=== PATIENT | female | born 2000 | race African-American/Black ===

== ENCOUNTER 2021-06-09 03:42 | Inpatient (IN) ==
[2021-06-09] MEDS ORDERED: LORazepam 1 MG TAB SL STA (04:16)
--- NOTE | 2021-06-09 04:18 | Emergency Department Note ---
Impression & Plan Suicidal ideation, Alcohol intoxication The case was signed out to Dr. Hood at change of shift awaiting evaluation by the ED psychiatric human services case manager ED Provider Note NAME: HAILEE HUERTA AGE: 20 SEX: F ARRIVES VIA: Ambulance INFORMANT: Patient ED PROVIDER(S): Kim Min DO CHIEF COMPLAINT: Anxiety; suicidal thoughts PLAN: Disposition: Case was signed out to Dr. Hood at change of shift awaiting evaluation by the ED psychiatric human services case manager Condition: Stable MEDICAL DECISION MAKING: This is a 20-year-old female patient with a history of anxiety who is now having suicidal thoughts. The patient did drink some alcohol between 9 PM and 11 PM this evening and began to have more significant anxiety. She then describes having scary thoughts and called her mother. Her mother directed her here to the emergency department for help. Once the patient is more awake, she will be evaluated by the ED psychiatric human services case manager. I have concerns that the patient was having increasing suicidal thoughts and the human services case manager will need to discuss what her specific plans were and what her intent was. Triage Nursing notes reviewed and agree with them. Vital Signs: reviewed and unremarkable Differential diagnosis: Mood disorder, thought disorder, suicidal ideation ER treatment provided: Sublingual Ativan Diagnostics interpreted by me: Laboratory studies: See below HPI: 20/ arrives for evaluation of anxiety. Patient describes having i ncreasing anxiety because of an interaction with a close friend of hers. She states that the close friend shared some very personal information about her with another friend and this was very upsetting to the patient. The patient was drinking some alcohol tonight and became even more anxious and began to have suicidal thoughts. She called her mother and her mom directed her here to the emergency department for help. ROS: See above HPI for pertinent positives & negatives. A total of 10 systems reviewed and were otherwise negative. PAST MEDICAL HISTORY:Anxiety; hyperthyroidism PAST SURGICAL HISTORY:See Below FAMILY HISTORY:See Below SOCIAL HISTORY:Patient is a senior at [employer]. She occasionally drinks alcohol. She denies any other drug use HOME MEDICATIONS:Toprol; methimazole ALLERGIES:None VITALS:See Below PHYSICAL EXAMINATION: HEENT: Head - normocephalic and atraumatic. Pupils are equal, round, and reactive to light. Extraocular eye muscles are intact, and sclera are anicteric. Nose - moist nasal mucosa without discharge. Mouth - moist buccal mucosa. Oropharynx is nonerythematous and there is no tonsillar exudate or e erasmo noted. Neck: Supple; no thyromegaly or cervical lymphadenopathy Heart: Regular rate and rhythm. There is a normal S1 and S2 with no murmurs, clicks, or gallops appreciated. Lungs: Clear to auscultation bilaterally with no wheezes, rales, or rhonchi. Abdomen: Soft, completely nontender, nondistended, with good bowel sounds. There are no palpable pulsatile masses or hepatosplenomegaly. There is no guarding, rigidity, or rebound noted. Extremities: No evidence of cyanosis, clubbing, or edema. There are easily palpable peripheral pulses. Skin: warm and dry with good turgor and no rashes. Psych: The patient is tearful on exam and is quite anxious to the point that she is tremulous. She does describe suicidal thoughts but would not divulge her plan ED COURSE: Times/Reassessments: 0405 the patient was evaluated in room A5, a complete history and physical was performed. Laboratory studies were drawn as above. Patient was given 0.5 mg of sublingual Ativan. Patient's alcohol level came back minimally elevated. However she was quite sleepy on exam. Once the patient is more awake, she will be evaluated by the ED psychiatric human services case manager. Kim Min DO Past Med/Surg History Medical History Hyperthyroidism No pertinent family history Surgical History No pertinent past surgical history Family History Father Hyperthyroidism Grandfather (Paternal) Hyperthyroidism Social History Smoking Status: Never smoker Tobacco Type: E-cigarettes / Vaping Hx Alcohol Use: No Preferred Language: Moroccan Feels Safe at Home: Yes Allergies Allergies Allergy/AdvReac Type Severity Reaction Status Date / Time No Known Drug Allergies Allergy Verified 02/03/20 12:25 Home Meds Home Medications Medication Instructions Recorded Confirmed levonorgestrel (Kyleena) INTRAUTERINE 12/09/19 02/03/20 Previous Rx's Medication Instructions Recorded methimazole 5 mg tablet 10 mg PO DAILY #30 tab 02/03/20 Results & Data (ED) Vital Signs Vital Signs - 24 hr 06/09/21 03:50 Temperature 36.7 C Temperature Source Oral Pulse Rate 80 Respiratory Rate 24 Blood Pressure 120/79 Blood Pressure Mean 92 Blood Pressure Position Sitting Pulse Oximetry 97 Oxygen Delivery Method Room Air Sepsis Recent Fever Within 48 Hours No Sepsis New/Unexplained Change in Mental Status N/A Sepsis Action Taken by Nursing No Action Required Laboratory Data Result diagrams: 06/09/21 04:46 06/09/21 04:46 Lab Results 06/09/21 06/09/21 06/09/21 Range/Units 04:46 04:46 04:46 WBC 5.09 (4.8-10.8) K/uL RBC 4.44 (4.2-5.4) M/uL Hgb 13.6 (12.0-16.0) g/dL Hct 40.1 (37-47) % MCV 90.3 (80-100) fL MCH 30.6 (25-34) pg MCHC 33.9 (32-36) g/dL RDW Std Deviation 40.1 (36.4-46.3) fL RDW Coeff of Nicholas 12.2 (11.5-14.5) % Plt Count 281 (130-400) K/uL MPV 10.9 H (7.4-10.4) fL Immature Gran % (Auto) 0.2 % Neut % (Auto) 39.1 % Lymph % (Auto) 49.7 % Hitchcock % (Auto) 10.4 % Eos % (Auto) 0.4 % Baso % (Auto) 0.2 % Neut # (Auto) 1.99 (1.4-6.5) K/uL Lymph # (Auto) 2.53 (1.2-3.4) K/uL Hitchcock # (Auto) 0.53 (0.11-0.59) K/uL Eos # (Auto) 0.02 (0-0.5) K/uL Baso # (Auto) 0.01 (0-0.2) K/uL Immature Gran # (Auto) 0.01 (0.00-0.02) K/uL Sodium 139 (136-145) mmol/L Potassium 3.6 (3.5-5.1) mmol/L Chloride 108 H (98-107) mmol/L Carbon Dioxide 24 (21-32) mmol/L Anion Gap 7 (3-11) BUN 10 (6-23) mg/dl Creatinine 0.64 (0.6-1.2) mg/dl Est Cr Clr Drug Dosing 138.8 ml/min Est GFR ( Amer) 147.8 ml/min Est GFR (Non-Af Amer) 127.6 ml/min BUN/Creatinine Ratio 15.6 (10-20) Glucose 93 (70-99(Fasting)) mg/dl Calcium 8.4 L (8.5-10.1) mg/dl Total Bilirubin 0.2 (0.2-1.0) mg/dl AST 19 (13-39) U/L ALT 16 (7-52) U/L Alkaline Phosphatase 45 (34-104) U/L Total Protein 7.3 (6.0-8.3) gm/dl Albumin 4.1 (3.4-5.0) gm/dl Globulin 3.2 (2.5-4.0) gm/dl Albumin/Globulin Ratio 1.3 (0.9-2) TSH 2.530 (0.300-4.500) uIu/ml Urine Color Urine Appearance (Clear) Urine pH (4.5-7.5) Ur Specific Jud (1.000-1.030) Urine Protein (Negative) Urine Glucose (UA) (Negative) Urine Ketones (Negative) Urine Blood (Negative) Urine Nitrite (Negative) Urine Bilirubin (Negative) Urine Urobilinogen (Negative) Ur Leukocyte Esterase (Negative) POC Ur Test (NEG) Salicylates (3.0-30) mg/dl Urine Opiates Screen (Neg) Ur Methadone, Qual (Neg) Acetaminophen (10-30) ug/ml Urine Barbiturates (Neg) Ur Phencyclidine (PCP) (Neg) U Amphetamin/Meth Scrn (Neg) MDMA (Ecstasy) Screen (Neg) U Benzodiazepines Scrn (Neg) Ur Cocaine Metabolite (Neg) U Marijuana (THC) Screen (Neg) Ethyl Alcohol mg/dL (<10.0) mg/dl SARS-CoV-2, RNA, NAAT (NEGATIVE) 06/09/21 06/09/21 06/09/21 Range/Units 04:46 04:46 05:30 WBC (4.8-10.8) K/uL RBC (4.2-5.4) M/uL Hgb (12.0-16.0) g/dL Hct (37-47) % MCV (80-100) fL MCH (25-34) pg MCHC (32-36) g/dL RDW Std Deviation (36.4-46.3) fL RDW Coeff of Nicholas (11.5-14.5) % Plt Count (130-400) K/uL MPV (7.4-10.4) fL Immature Gran % (Auto) % Neut % (Auto) % Lymph % (Auto) % Hitchcock % (Auto) % Eos % (Auto) % Baso % (Auto) % Neut # (Auto) (1.4-6.5) K/uL Lymph # (Auto) (1.2-3.4) K/uL Hitchcock # (Auto) (0.11-0.59) K/uL Eos # (Auto) (0-0.5) K/uL Baso # (Auto) (0-0.2) K/uL Immature Gran # (Auto) (0.00-0.02) K/uL Sodium (136-145) mmol/L Potassium (3.5-5.1) mmol/L Chloride (98-107) mmol/L Carbon Dioxide (21-32) mmol/L Anion Gap (3-11) BUN (6-23) mg/dl Creatinine (0.6-1.2) mg/dl Est Cr Clr Drug Dosing ml/min Est GFR ( Amer) ml/min Est GFR (Non-Af Amer) ml/min BUN/Creatinine Ratio (10-20) Glucose (70-99(Fasting)) mg/dl Calcium (8.5-10.1) mg/dl Total Bilirubin (0.2-1.0) mg/dl AST (13-39) U/L ALT (7-52) U/L Alkaline Phosphatase (34-104) U/L Total Protein (6.0-8.3) gm/dl Albumin (3.4-5.0) gm/dl Globulin (2.5-4.0) gm/dl Albumin/Globulin Ratio (0.9-2) TSH (0.300-4.500) uIu/ml Urine Color Urine Appearance (Clear) Urine pH (4.5-7.5) Ur Specific Jud (1.000-1.030) Urine Protein (Negative) Urine Glucose (UA) (Negative) Urine Ketones (Negative) Urine Blood (Negative) Urine Nitrite (Negative) Urine Bilirubin (Negative) Urine Urobilinogen (Negative) Ur Leukocyte Esterase (Negative) POC Ur Test NEG (NEG) Salicylates < 3.0 L (3.0-30) mg/dl Urine Opiates Screen (Neg) Ur Methadone, Qual (Neg) Acetaminophen < 3 L (10-30) ug/ml Urine Barbiturates (Neg) Ur Phencyclidine (PCP) (Neg) U Amphetamin/Meth Scrn (Neg) MDMA (Ecstasy) Screen (Neg) U Benzodiazepines Scrn (Neg) Ur Cocaine Metabolite (Neg) U Marijuana (THC) Screen (Neg) Ethyl Alcohol mg/dL 134.2 H (<10.0) mg/dl SARS-CoV-2, RNA, NAAT (NEGATIVE) 06/09/21 06/09/21 06/09/21 Range/Units 05:35 05:40 05:40 WBC (4.8-10.8) K/uL RBC (4.2-5.4) M/uL Hgb (12.0-16.0) g/dL Hct (37-47) % MCV (80-100) fL MCH (25-34) pg MCHC (32-36) g/dL RDW Std Deviation (36.4-46.3) fL RDW Coeff of Nicholas (11.5-14.5) % Plt Count (130-400) K/uL MPV (7.4-10.4) fL Immature Gran % (Auto) % Neut % (Auto) % Lymph % (Auto) % Hitchcock % (Auto) % Eos % (Auto) % Baso % (Auto) % Neut # (Auto) (1.4-6.5) K/uL Lymph # (Auto) (1.2-3.4) K/uL Hitchcock # (Auto) (0.11-0.59) K/uL Eos # (Auto) (0-0.5) K/uL Baso # (Auto) (0-0.2) K/uL Immature Gran # (Auto) (0.00-0.02) K/uL Sodium (136-145) mmol/L Potassium (3.5-5.1) mmol/L Chloride (98-107) mmol/L Carbon Dioxide (21-32) mmol/L Anion Gap (3-11) BUN (6-23) mg/dl Creatinine (0.6-1.2) mg/dl Est Cr Clr Drug Dosing ml/min Est GFR ( Amer) ml/min Est GFR (Non-Af Amer) ml/min BUN/Creatinine Ratio (10-20) Glucose (70-99(Fasting)) mg/dl Calcium (8.5-10.1) mg/dl Total Bilirubin (0.2-1.0) mg/dl AST (13-39) U/L ALT (7-52) U/L Alkaline Phosphatase (34-104) U/L Total Protein (6.0-8.3) gm/dl Albumin (3.4-5.0) gm/dl Globulin (2.5-4.0) gm/dl Albumin/Globulin Ratio (0.9-2) TSH (0.300-4.500) uIu/ml Urine Color Yellow Urine Appearance Clear (Clear) Urine pH 5.5 (4.5-7.5) Ur Specific Jud 1.016 (1.000-1.030) Urine Protein Negative (Negative) Urine Glucose (UA) Negative (Negative) Urine Ketones Negative (Negative) Urine Blood Negative (Negative) Urine Nitrite Negative (Negative) Urine Bilirubin Negative (Negative) Urine Urobilinogen Negative (Negative) Ur Leukocyte Esterase Negative (Negative) POC Ur Test (NEG) Salicylates (3.0-30) mg/dl Urine Opiates Screen Neg (Neg) Ur Methadone, Qual Neg (Neg) Acetaminophen (10-30) ug/ml Urine Barbiturates Neg (Neg) Ur Phencyclidine (PCP) Neg (Neg) U Amphetamin/Meth Scrn Neg (Neg) MDMA (Ecstasy) Screen Neg (Neg) U Benzodiazepines Scrn Neg (Neg) Ur Cocaine Metabolite Neg (Neg) U Marijuana (THC) Screen Pos H (Neg) Ethyl Alcohol mg/dL (<10.0) mg/dl SARS-CoV-2, RNA, NAAT NEGATIVE (NEGATIVE) Administered Medications Discontinued Medications Lorazepam (Lorazepam 1 Mg Tab) 0.5 mg SL NOW STA Stop: 06/09/21 04:17 Last Admin: 06/09/21 04:32 Dose: 0.5 mg Documented by: [id number] Discharge Plan Visit Data Chief Complaint: Anxiety Stated Complaint: Anxiety ED Provider: Kim Min Discharge Problem: Suicidal ideation, Alcohol intoxication Forms Stand Alone Forms: [facility], Suicide Prevention Resources Prescriptions Prescriptions: No Action methimazole 5 mg tablet 10 mg PO DAILY Qty: 30 RF: 3 Kyleena 17.5 mcg/24 hrs (5 yrs) 19.5 mg intrauterine device intrauterine RF: 0 Referrals Referrals: Bianca Siegel MD [Primary Care Provider] - Discharge Problem: Alcohol intoxication Qualifiers: Complication of substance-induced condition: with unspecified complication Qualified Code(s): F10.929 - Alcohol use, unspecified with intoxication, unspecified
[2021-06-09 04:55] LABS: Basophils # (auto) 0.01 K/uL (0-0.2); Basophils % (auto) 0.2 %; Eosinophils # (auto) 0.02 K/uL (0-0.5); Eosinophils % (auto) 0.4 %; Hematocrit (blood only) 40.1 % (37-47); Hemoglobin 13.6 g/dL (12.0-16.0); Immature Granulocytes # (auto) 0.01 K/uL (0.00-0.02); Immature Granulocytes % (auto) 0.2 %; Lymphocytes # (auto) 2.53 K/uL (1.2-3.4); Lymphocytes % (auto) 49.7 %; Mean Corpuscular Hemoglobin 30.6 pg (25-34); Mean Corpuscular Hgb Conc 33.9 g/dL (32-36); Mean Corpuscular Volume 90.3 fL (80-100); Mean Platelet Volume 10.9 fL (7.4-10.4); Monocytes # (auto) 0.53 K/uL (0.11-0.59); Monocytes % (auto) 10.4 %; Neutrophils # (auto) 1.99 K/uL (1.4-6.5); Neutrophils % (auto) 39.1 %; Platelet Count 281 K/uL (130-400); RDW Coefficient of Variation 12.2 % (11.5-14.5); RDW Standard Deviation 40.1 fL (36.4-46.3); Red Blood Count 4.44 M/uL (4.2-5.4); White Blood Count 5.09 K/uL (4.8-10.8)
[2021-06-09 05:13] LABS: Albumin Globulin Ratio 1.3 (0.9-2); Albumin Level 4.1 gm/dl (3.4-5.0); BUN Creatinine Ratio 15.6 (10-20); Bilirubin,Total 0.2 mg/dl (0.2-1.0); Calcium 8.4 mg/dl (8.5-10.1); Creatinine Clr Calc Pharmacy 138.8 ml/min; Est GFR (African American) 147.8 ml/min; Est GFR (Non-African American) 127.6 ml/min; Globulin 3.2 gm/dl (2.5-4.0); Potassium 3.6 mmol/L (3.5-5.1); Total Protein 7.3 gm/dl (6.0-8.3)
[2021-06-09 05:28] LABS: Acetaminophen < 3 ug/ml (10-30); Salicylate < 3.0 mg/dl (3.0-30)
[2021-06-09 06:01] LABS: Appearance Urine Clear (Clear); Bilirubin Urine Negative (Negative); Blood Urine Negative (Negative); Color Urine Yellow; Glucose Urine UA Negative (Negative); Ketones Urine Negative (Negative); Leukocyte Esterase Urine Negative (Negative); Nitrite Urine Negative (Negative); Protein Urine Negative (Negative); Specific Gravity Urine 1.016 (1.000-1.030); Urobilinogen Urine Negative (Negative); pH Urine 5.5 (4.5-7.5)
[2021-06-09 06:55] LABS: Amphetamines+Metham, Urine Neg (Neg); Barbiturates, Urine Neg (Neg); Benzodiazepine, Urine Neg (Neg); Cocaine, Urine Neg (Neg); MDMA (Ecstacy), Urine Neg (Neg); Methadone, Urine Neg (Neg); Opiate, Urine Neg (Neg); Phencyclidine, Urine Neg (Neg)
--- NOTE | 2021-06-09 08:15 | Emergency Department Note ---
ED Visit Note Patient was received in signout by Dr. Min. Please see her note for complete HPI and details. She is a 20-year-old female who presents to the ER with suicidal ideations who admits to a plan of suicide but will not elaborate on what it is. She was medically cleared by Dr. Day awaiting evaluation from her psychiatric care managers. Agreeable on a 201. Patient was evaluated by our psychiatric care managers and 3 south and admitted on 201. . : Alcohol intoxication Qualifiers: Complication of substance-induced condition: with unspecified complication Qualified Code(s): F10.929 - Alcohol use, unspecified with intoxication, unspecified
[2021-06-09] MEDS ORDERED: ALUMINUM/MAGNESIUM SUSP 30 ML UDC PO PRN (10:48)
[2021-06-09] MEDS ORDERED: MAGNESIUM HYDROXIDE SUSP 30 ML UDC PO PRN (10:48)
[2021-06-09] MEDS ORDERED: BISMUTH SUBSALICYLATE LIQD 236 ML PO PRN (10:48)
[2021-06-09] MEDS ORDERED: hydrOXYzine HCl 25 MG TAB PO PRN ×2 (10:48)
[2021-06-09] MEDS ORDERED: ACETAMINOPHEN 325 MG TAB PO PRN (10:48)
[2021-06-09] MEDS ORDERED: SODIUM CHLORIDE 0.65% NA SOLN 45 ML (OCEAN) PRN (10:48)
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
[2021-06-09] MEDS ORDERED: SERTRALINE HCL 50 MG TABLET PO ONE ×2 (12:56→22:00)
[2021-06-09] MEDS: METOPROLOL TARTRATE 25 MG TAB PO SCH (14:54)
[2021-06-09] MEDS: NICOTINE 14 MG/24 HR PATCH TD SCH (17:50)
[2021-06-09] MEDS ORDERED: methIMAzole 5 MG TABLET PO SCH (19:00)
[2021-06-10] MEDS: METOPROLOL TARTRATE 25 MG TAB PO SCH (10:15)
[2021-06-10] MEDS: NICOTINE 14 MG/24 HR PATCH TD SCH (10:33)
--- NOTE | 2021-06-10 12:51 | Psychiatric Progress Note ---
Date of Service June 10, 2021 Impression / Recommendations Impression 20 yo female presenting with suicidal ideation in the context of an anxiety attack triggered by an argument with her roommate. She reports a high level of anxiety at baseline which is also likely posttraumatic. She does not meet full criteria for PTSD or bipolar II disorder at this time but these will remain in the differential. 06/10/21: Continued inpatient hospitalization is medically necessary for ongoing monitoring and safety as unable to safety plan, overwhelmed by past, ongoing negative thought disortions and poor sleep (1) Major depression: (2) Hyperthyroidism: 06/10/21: thyroid enlarged on exam, symmetric, nl swallow, no significant nodules appreciated, no lymphadenopathy. 06/09/21: TSH is normal on methimazole but reports swelling, will need PCP and/or endocrine follow up. (3) Generalized anxiety disorder: 06/10/21: continue Zoloft trial, Vistaril prn this hs if insomnia persists. 06/09/21: The patient was admitted to the [facility] ([facility] mental health unit) on q15 min checks (behavioral with suicide precautions) for safety. The patient will participate in group, recreational, and milieu therapies and will be offered additional individual and family sessions as clinically appropriate. Risks/benefits/alternatives reviewed re: antidepressants for the treatment of depression and/or anxiety. Discussion included but was not limited to FDA warnings re: suicidality in adolescents and young adults. The patient agreed to a trial of Zoloft and will begin 25 mg this hs. Inventory Assets Strengths: intelligent, resilient Needs: family meeting, antidepressant trial, therapy referral Risk Factors Assessment Male: No : No Do You Have Access To A Gun?: No Health Problems: Yes Substance Use Disorders: No Previous Attempt: No Previous Psychiatric Hospitalization: No Protective Factors Assessment : No Responsible for Young Children: No Employed: Yes Supportive Family: Yes Interval History Identifying Information HAILEE HUERTA is a 20-year-old F, [employer] Senior, who currently lives in an apartment, has a history of 1 prior inpatient hospitalization in her teens, and was admitted on 06/09/21 10:48 on a 201 voluntary commitment for SI. Chief Complaint "I carry alot, I can't even remember much of my childhood as I've been the go to person for my family for a while". Review of Systems Sleep Information Total Hours of Sleep: 8.25 Meal Information Percent Meal Consumed - Breakfast: 100 Percent Meal Consumed - Lunch: 0 Percent Meal Consumed - Dinner: 50 Nutrition Comment: sleeping Subjective Subjective Patient was seen & assessed and interval progress reviewed with treatment team. Reports not sleeping well until sunrise, reminded about prns. She states sleep is similar at home, keeps thinking about the past and anxiety has been especially high since father had a cardiac arrest in February. She worries about his health, especially since missing from chunks of her childhood due to recurrent incarcerations (3 years starting age 9, parole violation so missed her graduation, etc). Reports didn't realize mother was moving until mom and younger sibs "were literally in the car driving to [place]". Doesn't identify mom's previous apartment as home. "I don't have a home since I turned 17". Physical Exam Psychiatric Orientation: alert and oriented x 3 Apperance: appropriately dressed and appropriately groomed Eye Contact: good eye contact Motor Behavior: no abnormal motor movements Speech: normal rate/rhythm/volume of speech Affect: + depressed affect Mood: + depressed mood Thought Process: goal directed thought process Thought Content: reality based without delusions Suicidal Thoughts: denies suicidal thoughts and denies suicidal intent Homicidal Thoughts: denies homicidal thoughts Hallucinations: no auditory hallucinations and no visual hallucinations Cognition: attention grossly intact and language grossly intact Estimated Intelligence: consistent with education level Insight: + fair insight Judgement: + fair judgement Vital Signs (Past 24 Hours) Last Vital Signs Temp 37.0 C 06/10/21 06:54 Pulse 73 06/10/21 06:55 Resp 16 06/10/21 06:54 BP 110/75 06/10/21 10:34 Pulse Ox 98 06/09/21 10:55 Results & Data ([facility]) Current Inpatient Medications Current Inpatient Medications: Current Inpatient Medications Acetaminophen (Acetaminophen 325 Mg Tab) 650 mg PO Q4H PRN PRN Reason: Headache or Minor Fever Stop: 07/09/21 10:47 Al Hydrox/Mg Hydrox/Simethicone (Aluminum/Magnesium Susp 30 Ml Udc) 30 ml PO Q4H PRN PRN Reason: GI Upset Stop: 07/09/21 10:47 Bismuth Subsalicylate (Bismuth Subsalicylate Liqd 236 Ml) 15 ml PO PRN PRN PRN Reason: Loose Stool Stop: 07/09/21 10:47 Hydroxyzine HCl (Hydroxyzine Hcl 25 Mg Tab) 50 mg PO HSZ PRN PRN Reason: Insomnia Stop: 07/09/21 10:47 Hydroxyzine HCl (Hydroxyzine Hcl 25 Mg Tab) 25 mg PO Q4H PRN PRN Reason: Anxiety Stop: 07/09/21 10:47 Magnesium Hydroxide (Magnesium Hydroxide Susp 30 Ml Udc) 30 ml PO DAILY PRN PRN Reason: Constipation Stop: 07/09/21 10:47 Methimazole (Methimazole 5 Mg Tablet) 5 mg PO DAILY@1900 [facility] Stop: 07/10/21 18:59 Metoprolol Tartrate (Metoprolol Tartrate 25 Mg Tab) 12.5 mg PO DAILY [facility] Stop: 07/09/21 12:59 Last Admin: 06/10/21 10:15 Dose: 12.5 mg Documented by: Miscellaneous (Remove Nicoderm Patch) 1 ea N/A DAILY@0859 [facility] Stop: 07/10/21 08:58 Last Admin: 06/10/21 10:14 Dose: 1 ea Documented by: Nicotine (Nicotine 14 Mg/24 Hr Patch) 14 mg TD QAM [facility] Stop: 07/09/21 12:59 Last Admin: 06/10/21 10:33 Dose: 14 mg Documented by: Sodium Chloride (Sodium Chloride 0.65% Na Soln 45 Ml ([place])) 1 - 2 sprays NA PRN PRN PRN Reason: Nasal Dryness/Congestion Stop: 07/09/21 10:47 Mental Health & Subst Abuse Tx Therapist Name of Therapist: None Internet Marketing Intern Name of Internet Marketing Intern: None Post Discharge Appointments Primary Care Physician Name Of Family Doctor: [facility] Primary Care Date of Appointment with PCP: 06/26/21 Time of Appointment with PCP: 10:20am Provider Appointment Comment: [facility]– [place]
[2021-06-10] MEDS: methIMAzole 5 MG TABLET PO SCH (18:53)
[2021-06-11] MEDS: NICOTINE 14 MG/24 HR PATCH TD SCH (10:08)
[2021-06-11] MEDS: METOPROLOL TARTRATE 25 MG TAB PO SCH (10:08)
[2021-06-11] MEDS ORDERED: traZODone HCL 50 MG TAB PO PRN (11:06)
--- NOTE | 2021-06-11 11:19 | Psychiatric Progress Note ---
Date of Service June 11, 2021 Impression / Recommendations Impression 20 yo female presenting with suicidal ideation in the context of an anxiety attack triggered by an argument with her roommate. She reports a high level of anxiety at baseline which is also likely posttraumatic. She does not meet full criteria for PTSD or bipolar II disorder at this time but these will remain in the differential. 06/11/21: more hopeless today, poor sleep (1) Major depression: (2) Hyperthyroidism: 06/11/21: no evidence of thyroid storm 06/10/21: thyroid enlarged on exam, symmetric, nl swallow, no significant nodules appreciated, no lymphadenopathy. 06/09/21: TSH is normal on methimazole but reports swelling, will need PCP and/or endocrine follow up. (3) Generalized anxiety disorder: 06/11/21: risks/benefits/alternatives reviewed re: trazodone 50 mg po qhs with repeat prn. One more dose of Zoloft 25 mg then plan for 50 mg. 06/10/21: continue Zoloft trial, Vistaril prn this hs if insomnia persists. 06/09/21: The patient was admitted to the [facility] ([facility] mental [facility]) on q15 min checks (behavioral with suicide precautions) for safety. The patient will participate in group, recreational, and milieu therapies and will be offered additional individual and family sessions as clinically appropriate. Risks/benefits/alternatives reviewed re: antidepressants for the treatment of depression and/or anxiety. Discussion included but was not limited to FDA warnings re: suicidality in adolescents and young adults. The patient agreed to a trial of Zoloft and will begin 25 mg this hs. Inventory Assets Strengths: intelligent, resilient Needs: family meeting, antidepressant trial, therapy referral Risk Factors Assessment Male: No : No Do You Have Access To A Gun?: No Health Problems: Yes Substance Use Disorders: No Previous Attempt: No Previous Psychiatric Hospitalization: No Protective Factors Assessment : No Responsible for Young Children: No Employed: Yes Supportive Family: Yes Interval History Identifying Information HAILEE HUERTA is a 20-year-old F, [employer] Senior, who currently lives in an apartment, has a history of 1 prior inpatient hospitalization in her teens, and was admitted on 06/09/21 10:48 on a 201 voluntary commitment for SI. Chief Complaint "I'm not doing great". Review of Systems Sleep Information Total Hours of Sleep: 8.5 Meal Information Percent Meal Consumed - Breakfast: 50 Percent Meal Consumed - Lunch: 75 Percent Meal Consumed - Dinner: 100 Nutrition Comment: sleeping Subjective Subjective Patient was seen & assessed and interval progress reviewed with nursing and social work. She called her roommate/friend and is very hopeless about her living situation, found friend to be cold and unapologetic. Patient states this reinforces every reason she didn't open up to people in the past. Touched on childhood experiences and stigma of being the "one with the problem" in her relationship with friend. She is able to recognize some of the unhealthy aspects of their friendship as rather 1 sided and she did not verbalize her needs to keep the peace. Encouraged therapeutic letter writing as "there was alot I didn't get to say". Sleep is still disrupted. Physical Exam Psychiatric Orientation: alert and oriented x 3 Apperance: appropriately dressed and appropriately groomed Eye Contact: good eye contact Motor Behavior: no abnormal motor movements Speech: normal rate/rhythm/volume of speech Affect: + depressed affect and + tearful affect Mood: + depressed mood Thought Process: goal directed thought process Thought Content: reality based without delusions Suicidal Thoughts: denies suicidal thoughts (but hopeless and unable to safety plan) and denies suicidal intent Homicidal Thoughts: denies homicidal thoughts Hallucinations: no auditory hallucinations and no visual hallucinations Cognition: attention grossly intact and language grossly intact Estimated Intelligence: consistent with education level Insight: + fair insight Judgement: + fair judgement Vital Signs (Past 24 Hours) Last Vital Signs Temp 37 C 06/11/21 06:42 Pulse 93 H 06/11/21 10:05 Resp 16 06/11/21 06:42 BP 121/83 06/11/21 10:05 Pulse Ox 98 06/09/21 10:55 Results & Data ([facility]) Current Inpatient Medications Current Inpatient Medications: Current Inpatient Medications Acetaminophen (Acetaminophen 325 Mg Tab) 650 mg PO Q4H PRN PRN Reason: Headache or Minor Fever Stop: 07/09/21 10:47 Al Hydrox/Mg Hydrox/Simethicone (Aluminum/Magnesium Susp 30 Ml Udc) 30 ml PO Q4H PRN PRN Reason: GI Upset Stop: 07/09/21 10:47 Bismuth Subsalicylate (Bismuth Subsalicylate Liqd 236 Ml) 15 ml PO PRN PRN PRN Reason: Loose Stool Stop: 07/09/21 10:47 Hydroxyzine HCl (Hydroxyzine Hcl 25 Mg Tab) 25 mg PO Q4H PRN PRN Reason: Anxiety Stop: 07/09/21 10:47 Last Admin: 06/10/21 19:00 Dose: 25 mg Documented by: Magnesium Hydroxide (Magnesium Hydroxide Susp 30 Ml Udc) 30 ml PO DAILY PRN PRN Reason: Constipation Stop: 07/09/21 10:47 Methimazole (Methimazole 5 Mg Tablet) 5 mg PO DAILY@1900 [facility] Stop: 07/10/21 18:59 Last Admin: 06/10/21 18:53 Dose: 5 mg Documented by: Metoprolol Tartrate (Metoprolol Tartrate 25 Mg Tab) 12.5 mg PO DAILY [facility] Stop: 07/09/21 12:59 Last Admin: 06/11/21 10:08 Dose: 12.5 mg Documented by: Miscellaneous (Remove Nicoderm Patch) 1 ea N/A DAILY@0859 [facility] Stop: 07/10/21 08:58 Last Admin: 06/11/21 10:08 Dose: Not Given Documented by: Nicotine (Nicotine 14 Mg/24 Hr Patch) 14 mg TD QAM [facility] Stop: 07/09/21 12:59 Last Admin: 06/11/21 10:08 Dose: 14 mg Documented by: Sertraline HCl (Sertraline Hcl 50 Mg Tablet) 25 mg PO HS [facility] Stop: 07/11/21 21:59 Sodium Chloride (Sodium Chloride 0.65% Na Soln 45 Ml ([place])) 1 - 2 sprays NA PRN PRN PRN Reason: Nasal Dryness/Congestion Stop: 07/09/21 10:47 Trazodone HCl (Trazodone Hcl 50 Mg Tab) 50 mg PO HS [facility] Stop: 07/11/21 21:59 Trazodone HCl (Trazodone Hcl 50 Mg Tab) 50 mg PO HS PRN PRN Reason: Insomnia Stop: 07/11/21 11:05 Mental Health & Subst Abuse Tx Therapist Name of Therapist: None Liability Analyst Name of Liability Analyst: None Post Discharge Appointments Primary Care Physician Name Of Family Doctor: [facility] Primary Care Date of Appointment with PCP: 06/26/21 Time of Appointment with PCP: 10:20am Provider Appointment Comment: [facility], [place], [place]
[2021-06-11] MEDS: methIMAzole 5 MG TABLET PO SCH (18:47)
[2021-06-11] MEDS: traZODone HCL 50 MG TAB PO SCH (21:29)
[2021-06-11] MEDS ORDERED: SERTRALINE HCL 50 MG TABLET PO SCH (22:00)
[2021-06-12 07:56] LABS: Marijuana Quant, GCMS Urine 129 ng/mL (<5)
[2021-06-12] MEDS: NICOTINE 14 MG/24 HR PATCH TD SCH (08:45)
[2021-06-12] MEDS: METOPROLOL TARTRATE 25 MG TAB PO SCH ×2 (08:47→12:19)
--- NOTE | 2021-06-12 10:17 | Psychiatric Progress Note ---
Date of Service June 12, 2021 Impression / Recommendations Impression 20 yo female presenting with suicidal ideation in the context of an anxiety attack triggered by an argument with her roommate. She reports a high level of anxiety at baseline which is also likely posttraumatic. She does not meet full criteria for PTSD or bipolar II disorder at this time but these will remain in the differential. 06/12/21: improving in that more aware of negative thought distortions (1) Major depression: (2) Hyperthyroidism: 06/11/21: no evidence of thyroid storm 06/10/21: thyroid enlarged on exam, symmetric, nl swallow, no significant nodules appreciated, no lymphadenopathy. 06/09/21: TSH is normal on methimazole but reports swelling, will need PCP and/or endocrine follow up. (3) Generalized anxiety disorder: 06/12/21: continue current meds and treatment plan. 06/11/21: risks/benefits/alternatives reviewed re: trazodone 50 mg po qhs with repeat prn. One more dose of Zoloft 25 mg then plan for 50 mg. 06/10/21: continue Zoloft trial, Vistaril prn this hs if insomnia persists. 06/09/21: The patient was admitted to the [facility] ([facility] mental health unit) on q15 min checks (behavioral with suicide precautions) for safety. The patient will participate in group, recreational, and milieu therapies and will be offered additional individual and family sessions as clinically appropriate. Risks/benefits/alternatives reviewed re: antidepressants for the treatment of depression and/or anxiety. Discussion included but was not limited to FDA warnings re: suicidality in adolescents and young adults. The patient agreed to a trial of Zoloft and will begin 25 mg this hs. Inventory Assets Strengths: intelligent, resilient Needs: family meeting, antidepressant trial, therapy referral Risk Factors Assessment Male: No : No Do You Have Access To A Gun?: No Health Problems: Yes Substance Use Disorders: No Previous Attempt: No Previous Psychiatric Hospitalization: No Protective Factors Assessment : No Responsible for Young Children: No Employed: Yes Supportive Family: Yes Interval History Identifying Information HAILEE HUERTA is a 20-year-old F, [employer] Senior, who currently lives in an apartment, has a history of 1 prior inpatient hospitalization in her teens, and was admitted on 06/09/21 10:48 on a 201 voluntary commitment for SI. Chief Complaint "I'm feeling so much better" Review of Systems Sleep Information Total Hours of Sleep: 6.5 Sleep Comments: pt given trazodone per rn. pt on q-15 minute checks Meal Information Percent Meal Consumed - Breakfast: 100 Percent Meal Consumed - Lunch: 100 Percent Meal Consumed - Dinner: 100 Nutrition Comment: sleeping Subjective Subjective Patient was seen & assessed and interval progress reviewed with treatment team. Her sleep is much improved. She had a good meeting with her mother. She has structured plans for spring break. metoprolol held this am due to parameters. She denies dizziness. Physical Exam Psychiatric Orientation: alert and oriented x 3 Apperance: appropriately dressed and appropriately groomed Eye Contact: good eye contact Motor Behavior: no abnormal motor movements Speech: normal rate/rhythm/volume of speech Affect: + depressed affect Mood: + depressed mood Thought Process: goal directed thought process Thought Content: reality based without delusions Suicidal Thoughts: denies suicidal thoughts Homicidal Thoughts: denies homicidal thoughts Hallucinations: no auditory hallucinations and no visual hallucinations Cognition: attention grossly intact and language grossly intact Estimated Intelligence: consistent with education level Insight: + fair insight Judgement: + fair judgement Vital Signs (Past 24 Hours) Last Vital Signs Temp 36.7 C 06/12/21 06:52 Pulse 79 06/12/21 06:53 Resp 16 06/12/21 06:52 BP 117/81 06/12/21 06:53 Pulse Ox 98 06/09/21 10:55 Results & Data ([facility]) Laboratory Results Laboratory Results - last 24 hr 06/09/21 05:40 U Marijuana THC Carboxy 129 H Drug Screen Comment SEE NOTE Current Inpatient Medications Current Inpatient Medications: Current Inpatient Medications Acetaminophen (Acetaminophen 325 Mg Tab) 650 mg PO Q4H PRN PRN Reason: Headache or Minor Fever Stop: 07/09/21 10:47 Al Hydrox/Mg Hydrox/Simethicone (Aluminum/Magnesium Susp 30 Ml Udc) 30 ml PO Q4H PRN PRN Reason: GI Upset Stop: 07/09/21 10:47 Bismuth Subsalicylate (Bismuth Subsalicylate Liqd 236 Ml) 15 ml PO PRN PRN PRN Reason: Loose Stool Stop: 07/09/21 10:47 Hydroxyzine HCl (Hydroxyzine Hcl 25 Mg Tab) 25 mg PO Q4H PRN PRN Reason: Anxiety Stop: 07/09/21 10:47 Last Admin: 06/10/21 19:00 Dose: 25 mg Documented by: Magnesium Hydroxide (Magnesium Hydroxide Susp 30 Ml Udc) 30 ml PO DAILY PRN PRN Reason: Constipation Stop: 07/09/21 10:47 Methimazole (Methimazole 5 Mg Tablet) 5 mg PO DAILY@1900 [facility] Stop: 07/10/21 18:59 Last Admin: 06/11/21 18:47 Dose: 5 mg Documented by: Metoprolol Tartrate (Metoprolol Tartrate 25 Mg Tab) 12.5 mg PO DAILY [facility] Stop: 07/09/21 12:59 Last Admin: 06/12/21 08:47 Dose: Not Given Documented by: Miscellaneous (Remove Nicoderm Patch) 1 ea N/A DAILY@0859 [facility] Stop: 07/10/21 08:58 Last Admin: 06/12/21 08:48 Dose: Not Given Documented by: Nicotine (Nicotine 14 Mg/24 Hr Patch) 14 mg TD QAM [facility] Stop: 07/09/21 12:59 Last Admin: 06/12/21 08:45 Dose: 14 mg Documented by: Sertraline HCl (Sertraline Hcl 50 Mg Tablet) 25 mg PO HS [facility] Stop: 07/11/21 21:59 Last Admin: 06/11/21 21:28 Dose: 25 mg Documented by: Sodium Chloride (Sodium Chloride 0.65% Na Soln 45 Ml ([place])) 1 - 2 sprays NA PRN PRN PRN Reason: Nasal Dryness/Congestion Stop: 07/09/21 10:47 Trazodone HCl (Trazodone Hcl 50 Mg Tab) 50 mg PO HS [facility] Stop: 07/11/21 21:59 Last Admin: 06/11/21 21:29 Dose: 50 mg Documented by: Trazodone HCl (Trazodone Hcl 50 Mg Tab) 50 mg PO HS PRN PRN Reason: Insomnia Stop: 07/11/21 11:05 Mental Health & Subst Abuse Tx Therapist Name of Therapist: Freddie Hong Therapist's Date of Therapist Appointment: 06/19/21 Time of Therapist Appointment: 9am Therapy Appointment Comment: call jodie with email Toy Designer Name of Toy Designer: None Post Discharge Appointments Primary Care Physician Name Of Family Doctor: [facility] Primary Care Date of Appointment with PCP: 06/26/21 Time of Appointment with PCP: 10:20am Provider Appointment Comment: [facility], [place], [place]
[2021-06-12] MEDS: methIMAzole 5 MG TABLET PO SCH (19:13)
[2021-06-12] MEDS: traZODone HCL 50 MG TAB PO SCH (21:05)
[2021-06-12] MEDS ORDERED: SERTRALINE HCL 50 MG TABLET PO SCH (22:00)
[2021-06-13] MEDS: NICOTINE 14 MG/24 HR PATCH TD SCH (08:12)
[2021-06-13] MEDS: METOPROLOL TARTRATE 25 MG TAB PO SCH (08:14)
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
== END 2021-06-13 11:00 | disposition home or self-care (01) | DRG 881 ==
LOC: ED 03:42 → 3S 10:48